=== PATIENT | male | born 1990 ===

== ENCOUNTER 2022-07-22 15:22 | Emergency (ER) | payer SELFPAY ==
[~2022-07-22] VITALS: Ht 182.9 cm; Wt 81.6 kg
[2022-07-22] MEDS ORDERED: IV D5 1/2 NS 1000 ML 1,000 ML IV ONE (15:45)
[2022-07-22] MEDS ORDERED: IV NORMAL SALINE 1000 ML BAG IV ONE (15:45)
[2022-07-22] MEDS ORDERED: LORAZEPAM 2 MG/1 ML VIAL ONE ×3 (15:49→17:42)
[2022-07-22 15:57] LABS: HEMATOCRIT 47.5 % (36.7-47.1); MEAN CORPUSCULAR HEMOGLOBIN 31.6 uug (23.8-33.4); PLATELET COUNT (AUTO) 200 K/uL (152-348)
--- NOTE | 2022-07-22 16:08 | NUR ---
PT IS IN ROOM #1B. DR ORTA EVALUATED THE PT.
[2022-07-22] MEDS ORDERED: LORAZEPAM 2 MG/1 ML VIAL IM ONE (16:15)
[2022-07-22 16:18] LABS: BILIRUBIN,DIRECT 0.1 mg/dL (0.0-0.2); BILIRUBIN,TOTAL 0.6 mg/dL (0.2-1.0); CREATININE 0.8 mg/dL (0.6-1.3); POTASSIUM 3.8 mmol/L (3.5-5.1); TOTAL PROTEIN, SERUM 7.9 g/dL (6.4-8.2)
[2022-07-22] MEDS ORDERED: ONDANSETRON 4 MG/2 ML VIAL ONE (17:43)
[2022-07-22] MEDS ORDERED: LORAZEPAM 2 MG/1 ML VIAL IV ONE ×2 (17:45)
[2022-07-22] MEDS ORDERED: ONDANSETRON 4 MG/2 ML VIAL IV ONE (17:45)
--- NOTE | 2022-07-22 18:03 | NUR ---
Critical lab: Notified MD of alcohol level of [id number]
--- NOTE | 2022-07-22 19:25 | NUR ---
CT IN PROCESS
[2022-07-22] MEDS ORDERED: THIAMINE HCL 200 MG/2 ML VIAL IV ONE (20:30)
[2022-07-22] MEDS ORDERED: IV NS 1000 ML 1,000 ML IV ONE (20:30)
--- NOTE | 2022-07-22 21:15 | NUR ---
pt. keeps getting up from bed, redirect patient back to bed
[2022-07-22] MEDS ORDERED: CHLORDIAZEPOXIDE HCL 25 MG CAPSULE PO ONE (21:45)
[2022-07-23] MEDS ORDERED: CHLO25CA22 PO (00:18)
[2022-07-23] MEDS ORDERED: CHLORDIAZEPOXIDE HCL 25 MG CAPSULE ONE (00:24)
[2022-07-23] MEDS ORDERED: CHLORDIAZEPOXIDE HCL 25 MG CAPSULE PO ONE (00:30)
[2022-07-23 00:31] VITALS: BP 122/87
--- NOTE | 2022-07-23 00:31 | NUR ---
Patient discharged to home in stable condition. Written and verbal after care instructions given. Patient verbalizes understanding of instructions. Stressed follow up or return to ER for worsening s/s.
== END 2022-07-23 00:32 | disposition home or self-care (01) ==
LOC: ER 15:22
DX: F10.229 Alcohol dependence with intoxication, unspecified (principal)
CPT/HCPCS: 80076; 80048; 85025; 36415; 70450; 72125; 99285; 96361; 96374; 96375; 96376; 80320; J2060 ×3; J2405; J3411; J7040; A4663; G0480